=== PATIENT | male | born 1935 | race Caucasian/White ===

== ENCOUNTER 2019-08-17 06:20 | Inpatient (IN) | payer MEDICARE ==
[~2019-08-17] VITALS: Ht 180.3 cm; Wt 79.0 kg
[2019-08-17] VITALS (7 sets, daily range): BP systolic 111–157; BP diastolic 51–69
[2019-08-17] MEDS ORDERED: IODIXANOL 320MG/ML 200ML BOTTLE ONE (07:35)
[2019-08-17] MEDS ORDERED: LIDOCAINE HCL 1% 20ML VIAL (Pyxis) INJ ONE (07:35)
[2019-08-17] MEDS ORDERED: IOHEXOL-300 100 ML BOTTLE ONE (07:35)
[2019-08-17] MEDS ORDERED: FENTANYL CITRATE/PF 50MCG/ML 2ML VIAL ONE (08:54)
[2019-08-17] MEDS ORDERED: MIDAZOLAM HCL 2 MG/2 ML VIAL ONE (08:54)
[2019-08-17] MEDS ORDERED: IODIXANOL 320MG/ML 100 ML BOTTLE IV ONE (10:08)
[2019-08-17] MEDS ORDERED: ATROPINE SULFATE 0.1MG/ML 10ML DISP.SYRIN ONE (10:14)
[2019-08-17] MEDS ORDERED: HEPARIN SODIUM 1,000 UNIT/1ML VIAL IV ONE (10:45)
[2019-08-17] MEDS ORDERED: PHENYLEPHRINE 100MCG/ML 10ML VIAL (CATH LAB) IV ONE (10:45)
[2019-08-17] MEDS ORDERED: NITROGLYCERIN 50MCG/ML 10ML VIAL (CATH LAB) IV ONE (10:45)
[2019-08-17] MEDS ORDERED: NICARDIPINE 100MCG/ML 10ML VIAL (CATH LAB) IV ONE (10:45)
[2019-08-17] MEDS ORDERED: ASPIRIN 325MG EC TABLET PO ONE (10:53)
[2019-08-17] MEDS ORDERED: CLOPIDOGREL 75MG TABLET ONE (10:53)
[2019-08-17] MEDS ORDERED: ACETAMINOPHEN 325MG TABLET PO PRN (11:15)
[2019-08-17] MEDS ORDERED: ONDANSETRON HCL 4MG/2ML INJ IV PRN (11:15)
[2019-08-17] MEDS ORDERED: ATROPINE SULFATE 1MG/10ML SYR IV PRN (11:15)
[2019-08-17] MEDS ORDERED: METO-396 MT (11:39)
[2019-08-17] MEDS ORDERED: ATOR40TA70 MT (11:39)
[2019-08-17] MEDS ORDERED: ISOS30TA6 MT (11:39)
[2019-08-17] MEDS ORDERED: ASPI-1497 MT (11:39)
[2019-08-17] MEDS ORDERED: VALS160T28 MT (11:39)
[2019-08-17] MEDS: METOPROLOL TARTRATE 25MG TABLET PO SCH ×2 (14:48→21:00)
[2019-08-17] MEDS ORDERED: ATORVASTATIN CALCIUM 40MG TABLET PO SCH (21:00)
[2019-08-18 02:11] VITALS: BP 134/58
[2019-08-18 04:00] VITALS: BP 155/67
[2019-08-18 05:59] VITALS: BP 108/50
[2019-08-18 06:26] LABS: BASOPHILS % 0.5 % (0.0-2.0); EOSINOPHILS % 1.4 % (0.0-5.0); HEMATOCRIT. 37.2 % (42.0-52.0); LYMPHOCYTES % 21.6 % (20.0-50.0); MEAN CORPUSCULAR HEMOGLOBIN 30.4 pg (28.0-32.0); MEAN CORPUSCULAR VOLUME 87.2 fL (80.0-94.0); MEAN PLATELET VOLUME 7.7 fl (7.4-10.4); MONOCYTES % 8.7 % (2.0-8.0); NEUTROPHILS % 67.8 % (40.0-76.0); PLATELET 203 x1000/uL (130-400); RED BLOOD CELL COUNT 4.27 mill/uL (4.7-6.1); RED CELL DISTRIBUTION WIDTH 13.3 % (11.6-14.6)
[2019-08-18 07:01] LABS: CHLORIDE 110 mEq/L (98-107)
[2019-08-18 08:00] VITALS: BP 169/42
[2019-08-18] MEDS: METOPROLOL TARTRATE 25MG TABLET PO SCH (08:09)
[2019-08-18] MEDS ORDERED: CLOPIDOGREL 75MG TABLET PO SCH (09:00)
[2019-08-18] MEDS ORDERED: ASPIRIN 325MG TABLET PO SCH (09:00)
[2019-08-18 10:00] VITALS: BP 114/48
[2019-08-18 11:05] VITALS: BP 169/42
== END 2019-08-18 11:55 | disposition home health service (06) | DRG 247 ==
LOC: CCL 06:20 → 3WST 06:21
PROVIDERS: ADMIT Specialist; ATTEND Specialist
PROC: 027035Z Dilation of Coronary Artery, One Artery with Two Drug-eluting Intraluminal Devices, Percutaneous Approach (ICD-10-PCS; principal; 2019-08-17)
PROC: X2C0361 Extirpation of Matter from Coronary Artery, One Artery using Orbital Atherectomy Technology, Percutaneous Approach, New Technology Group 1 (ICD-10-PCS; 2019-08-17)
PROC: 4A023N7 Measurement of Cardiac Sampling and Pressure, Left Heart, Percutaneous Approach (ICD-10-PCS; 2019-08-17)
PROC: B2111ZZ Fluoroscopy of Multiple Coronary Arteries using Low Osmolar Contrast (ICD-10-PCS; 2019-08-17)
DX: I25.110 Atherosclerotic heart disease of native coronary artery with unstable angina pectoris (principal); G91.2 (Idiopathic) normal pressure hydrocephalus; E78.5 Hyperlipidemia, unspecified; I44.7 Left bundle-branch block, unspecified; G31.83 Neurocognitive disorder with Lewy bodies; I11.9 Hypertensive heart disease without heart failure; F17.210 Nicotine dependence, cigarettes, uncomplicated; Z95.5 Presence of coronary angioplasty implant and graft; Z79.02 Long term (current) use of antithrombotics/antiplatelets
CPT/HCPCS: 36415; 80048; 85025; 85347; 92933; 93005; 93454; C1725; C1769; C1874; C1887; C1893; J0461; J1644; J2250; J2370; J3010; J3490; Q9967

== ENCOUNTER 2022-06-23 12:58 | Inpatient (IN) | payer MEDICARE ==
[~2022-06-23] VITALS: Ht 177.8 cm; Wt 85.7 kg
[~2022-06-23 12:58] MED LIST: ASPI-1497 MT; ATOR40TA70 MT; ISOS30TA91 MT; METO-396 MT; VALS160T28 MT
[2022-06-23 13:32] VITALS: BP 125/57
[2022-06-23] MEDS: SODIUM CHLORIDE 0.45% 1,000 ML IV SCH (18:37)
[2022-06-23 20:03] VITALS: BP 126/53
[2022-06-23] MEDS: ATORVASTATIN CALCIUM 10MG TABLET PO SCH (20:32)
[2022-06-23 23:04] LABS: CLARITY URINE CLEAR (CLEAR); COLOR URINE YELLOW (YELLOW); KETONES URINE NEGATIVE (NEGATIVE); LEUKOCYTE ESTERASE URINE NEGATIVE (NEGATIVE); NITRITE URINE NEGATIVE (NEGATIVE); OCCULT BLOOD URINE NEGATIVE (NEGATIVE); PROTEIN URINE NEGATIVE (NEGATIVE); SPECIFIC GRAVITY URINE 1.014 (1.005-1.030)
[2022-06-24] VITALS (7 sets, daily range): BP systolic 119–153; BP diastolic 55–70
[2022-06-24] MEDS: SODIUM CHLORIDE 0.45% 1,000 ML IV SCH ×2 (03:44→15:24)
[2022-06-24 07:24] LABS: BASOPHILS % 0.8 % (0.0-2.0); EOSINOPHILS % 2.1 % (0.0-5.0); HEMATOCRIT. 41.5 % (42.0-52.0); LYMPHOCYTES % 21.8 % (20.0-50.0); MEAN CORPUSCULAR HEMOGLOBIN 29.5 pg (28.0-32.0); MEAN CORPUSCULAR VOLUME 87.5 fL (80.0-94.0); MEAN PLATELET VOLUME 7.3 fl (7.4-10.4); MONOCYTES % 7.4 % (2.0-8.0); NEUTROPHILS % 67.9 % (40.0-76.0); PLATELET 232 x1000/uL (130-400); RED BLOOD CELL COUNT 4.75 mill/uL (4.7-6.1); RED CELL DISTRIBUTION WIDTH 13.9 % (11.6-14.6)
[2022-06-24 07:53] LABS: PARTIAL THROMBOPLASTIN TIME 30.9 sec (23.4-31.0); PROTHROMBIN TIME 11.2 sec (9.6-11.0)
[2022-06-24] MEDS: ISOSORBIDE MONONITRATE 30MG TABLET SR 24HR PO SCH (08:29)
[2022-06-24] MEDS: TAMSULOSIN HCL 0.4MG SR CAPSULE PO SCH (08:30)
[2022-06-24 08:55] LABS: CHLORIDE 110 mEq/L (98-107)
[2022-06-24] MEDS ORDERED: CEFAZOLIN 1000MG PREMIX 100 ML IV ONE (09:55)
[2022-06-24] MEDS ORDERED: FENTANYL CITRATE/PF 50MCG/ML 2ML VIAL ONE (10:04)
[2022-06-24] MEDS ORDERED: MIDAZOLAM HCL 2 MG/2 ML VIAL ONE (10:04)
[2022-06-24] MEDS ORDERED: GENTAMICIN/NS IRRIGATION 500 ML IR ONE (10:05)
[2022-06-24] MEDS ORDERED: LIDOCAINE HCL/PF 1% 10 MG/ML 5ML VIAL ONE (10:08)
[2022-06-24] MEDS ORDERED: DIPHENHYDRAMINE 50MG/ML VIAL ONE (10:11)
[2022-06-24] MEDS ORDERED: MORPHINE SULFATE 2 MG/ML CPJ (NOT FOR IM USE) IV PRN (11:30)
[2022-06-24] MEDS ORDERED: HYDROCODONE/ACETAMINOPHEN 5/325MG TABLET PO PRN (11:30)
[2022-06-24] MEDS ORDERED: NALOXONE HCL 0.4MG/ML VIAL IV PRN (11:45)
[2022-06-24] MEDS ORDERED: ACETAMINOPHEN 325MG TABLET PO PRN (15:15)
[2022-06-24] MEDS ORDERED: LORAZEPAM 2MG/ML CPJ IV PRN (15:15)
[2022-06-24] MEDS: CEFAZOLIN 1000MG PREMIX 50 ML IV SCH (19:04)
[2022-06-24] MEDS: ATORVASTATIN CALCIUM 10MG TABLET PO SCH (22:47)
[2022-06-25] VITALS: BP 115/58
[2022-06-25] MEDS: CEFAZOLIN 1000MG PREMIX 50 ML IV SCH ×2 (02:12→09:54)
[2022-06-25] MEDS: SODIUM CHLORIDE 0.45% 1,000 ML IV SCH (03:09)
[2022-06-25 04:00] VITALS: BP 158/67
[2022-06-25 07:00] LABS: BASOPHILS % 0.6 % (0.0-2.0); EOSINOPHILS % 0.7 % (0.0-5.0); HEMATOCRIT. 41.9 % (42.0-52.0); HEMOGLOBIN. 14.5 g/dL (14.0-18.0); LYMPHOCYTES % 14.6 % (20.0-50.0); MEAN CORPUSCULAR HEMOGLOBIN 30.4 pg (28.0-32.0); MEAN CORPUSCULAR VOLUME 88.1 fL (80.0-94.0); MEAN PLATELET VOLUME 7.5 fl (7.4-10.4); MONOCYTES % 7.2 % (2.0-8.0); NEUTROPHILS % 76.9 % (40.0-76.0); PLATELET 231 x1000/uL (130-400); RED BLOOD CELL COUNT 4.76 mill/uL (4.7-6.1); RED CELL DISTRIBUTION WIDTH 14.1 % (11.6-14.6)
[2022-06-25 07:12] LABS: CHLORIDE 108 mEq/L (98-107)
[2022-06-25 08:00] VITALS: BP 148/66
[2022-06-25] MEDS ORDERED: ASPIRIN 81MG EC TABLET PO SCH (09:00)
[2022-06-25] MEDS: ISOSORBIDE MONONITRATE 30MG TABLET SR 24HR PO SCH (09:55)
[2022-06-25] MEDS: TAMSULOSIN HCL 0.4MG SR CAPSULE PO SCH (09:55)
[2022-06-25 11:45] VITALS: BP 111/57
[2022-06-25 11:57] VITALS: BP 111/57
== END 2022-06-25 14:35 | disposition home health service (06) | DRG 243 ==
LOC: 7WST 13:02
PROVIDERS: ADMIT Specialist; ATTEND Specialist
PROC: 0JH606Z Insertion of Pacemaker, Dual Chamber into Chest Subcutaneous Tissue and Fascia, Open Approach (ICD-10-PCS; principal; 2022-06-24)
PROC: 02H63JZ Insertion of Pacemaker Lead into Right Atrium, Percutaneous Approach (ICD-10-PCS; 2022-06-24)
PROC: 02HK3JZ Insertion of Pacemaker Lead into Right Ventricle, Percutaneous Approach (ICD-10-PCS; 2022-06-24)
DX: I49.5 Sick sinus syndrome (principal); G93.40 Encephalopathy, unspecified; I44.2 Atrioventricular block, complete; F02.80 Dementia in other diseases classified elsewhere, unspecified severity, without behavioral disturbance, psychotic disturbance, mood disturbance, and anxiety; G31.83 Neurocognitive disorder with Lewy bodies; Z20.822 Contact with and (suspected) exposure to COVID-19; I25.10 Atherosclerotic heart disease of native coronary artery without angina pectoris; E78.5 Hyperlipidemia, unspecified; I10 Essential (primary) hypertension; N40.0 Benign prostatic hyperplasia without lower urinary tract symptoms; G90.8 Other disorders of autonomic nervous system; Z87.891 Personal history of nicotine dependence; Z95.5 Presence of coronary angioplasty implant and graft
CPT/HCPCS: 33208; 36415; 71045; 80048; 81003; 83735; 84443; 85025; 87426; 93005; 93306; A4565; C1785; C1898; J0690; J1200; J2060; J2250; J3010; J3490; L3670